=== PATIENT | male | born 1930 | race Caucasian/White ===

== ENCOUNTER 2016-07-29 10:52 | Inpatient (IN) | payer MEDICARE ==
[~2016-07-29] VITALS: Ht 175.3 cm; Wt 77.7 kg
[2016-07-29] VITALS (8 sets, daily range): BP systolic 93–147; BP diastolic 50–71; PULSE 49–75; RESP 16–20; O2SAT 96–98
[~2016-07-29 10:52] MED LIST: ALLO300T29 PO; ASAEC PO; ATEN25TA7 PO; BUPR150T6 PO; CAR2 PO; CHOL200035 PO; FLUO10TA PO; GLYB2.5T5 PO; LISI20TA PO; MAGN200T3 PO; PRAV80TA PO; RANI-323 PO; SILD50TA PO; clonidine PO
--- NOTE | 2016-07-29 11:27 | ED.REPORT ---
HPI-Altered Mental Status Date of Service Jul 29, 2016 ED Provider: History of Present Illness: 85-year-old male here today after being found down this morning at 9:30. Unknown how long he was down for. States he had multiple falls last night. He has been confused for 1-2 days. He complains of left shoulder pain that is new today he also complains of left hip pain. His family here states that he always has hip pain. He could not get up himself from the ground today that the medics to help him up so he has been nonambulatory today. Usually lives alone and gets around okay with some hip pain. Right now he denies any chest pain or shortness of breath. Denies dysuria or change in urination. Denies nausea or vomiting. He does state she has had a productive cough for the last few days. He is a daily drinker, his son's call him a Alcoholic. He is clearly confused. He denies having head pain and neck pain or back pain. 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 fib. Appears not on blood thinners due to alcoholism per previous notes. Nursing Notes Stated Complaint: ALTERED MENTAL STATUS Chief Complaint: Multiple Trauma/Fall Nursing Notes Reviewed: Yes Allergies: Coded Allergies: No Known Allergies (Verified Allergy, Unknown, 07/29/16) Scheduled Allopurinol (Allopurinol) 300 Mg Tablet 300 MG PO DAILY Amlodipine (Amlodipine) 5 Mg Tablet 2.5 MG PO DAILY Aspirin (Aspirin) 325 Mg Tablet 325 MG PO DAILY Cholecalciferol (Vitamin D3) (Vitamin D3) 2,000 Unit Tablet 2,000 UNIT PO DAILY Gabapentin (Gabapentin) 300 Mg Capsule 600 MG PO HS Lisinopril (Lisinopril) 5 Mg Tablet 5 MG PO BID Multivitamin (Once Daily) 1 Each Tablet 1 EACH PO DAILY Pravastatin (Pravastatin) 40 Mg Tablet 40 MG PO DAILY Tamsulosin (Flomax) 0.4 Mg Capsule 0.8 MG PO DAILY Thiamine Mononitrate (Vitamin B-1) 100 Mg Tablet 100 MG PO DAILY Vit B Comp/C/FA/Iron/Vit E (Vitamin B Complex Tablet) 1 Each Tablet 1 EACH PO DAILY Scheduled PRN Furosemide (Furosemide) 20 Mg Tab 20 MG PO DAILY PRN PRN leg swelling General Time Seen by MD: 11:04 Chief Complaint Confused, Disoriented, Not acting right confused, multiple falls. Found down this AM Hx Obtained From: Patient, Son, Other family..., EMS Arrived By: Ambulance Sudden in Onset?: Yes Onset Occurred: Yesterday Symptom Duration: Constant Location: : Arm left: Pelvis Severity: Current: No pain currently Severity: Maximum: Moderate Recent Healthcare: Recent doctor visit Similar Sx Previous: No Risk Factors Risk Notes: Hx RI, afib, ETOH, CKD stage 3 )( IC Bleed Risk Strat EtOH use Past Medical History Smoking History Never Smoker Review of Systems Constitutional: Reports: Weakness - generalized Eyes: Denies: Blurred bilateral, Eye pain bilateral Respiratory: Reports: Non-productive cough, Denies: Dyspnea on exertion, Wheezing Cardiovascular: Denies: Chest pain, Dyspnea on exertion GI: Denies: Abdominal pain, Diarrhea, Nausea, Vomiting Skin: Denies Rash Neurologic: Reports: Change LOC, Confusion, Problem walking, Denies: Dizziness, Headache, Lightheaded, Numbness Psychiatric: Reports: Change mental status Complete sys rev & neg: except as marked. Physical Exam Initial Vital Signs Vital Signs (First) Date Time Temp Pulse Resp B/P Pulse Ox O2 Delivery O2 Flow Rate FiO2 07/29/16 11:01 36.8 75 20 104/50 97 Room Air Initial VS: Reviewed ENT: Mucous membranes moist, Conjunctiva normal Abdomen / GI: Soft, Non-tender, No guarding, No rebound, No distention Back: No CVA tenderness Lymphatic: No lymphadenopathy Extremities: Vascular intact, Neuro intact, No swelling, No tenderness Skin: Warm, Dry, No cyanosis General/Constitutional: Awake, Alert, No acute distress Alertness: Positive: Confused, Disoriented Behavior: Negative: Aggressive Head / Eyes: Atraumatic, Normocephalic, PERRL, EOMI, No nystagmus, No periorbital redness, Conjunctiva NL Neck: Atraumatic, Supple, Full range of motion, No swelling, Non-tender, No midline vertebral tend Dec ROM and pain with head turn to R Respiratory / Chest: Atraumatic, Breath sounds = bilat, No respiratory distress Wheezing / Retractions: Positive: Wheezing expiratory (throughout) Cardiovascular: Cap refill not delayed, Peripheral circulation NL Heart Rate / Rhythm: Positive: Irreg irregular rhythm Heart Sounds / Murmur: Positive: Murmur present... (III/) Periph CV / BP Differential: Positive: Peripheral pulses 3+ Mental Status: Positive: Confused, Negative: Lethargic, Unresponsive Speech: Positive: Expressive aphasia Gait Abnormality: Positive: Unable to walk ENT: Atraumatic, Airway patent, Mucous membranes moist, Pharynx NL, No peritonsillar abscess, No pooling of secretions, No trismus, Tympanic membs NL, Ext aud canal NL, Mastoid area NL, Nose exam NL, No sinus tenderness, No facial swelling, Gums/dentition NL Abdomen: Atraumatic, Soft, Non-tender, McBurney's non-tender, No guarding, No rebound, BS normoactive, No distention, No hernia, No palpable mass, No pulsatile mass Back: Atraumatic, Inspection NL, Non-tender, No midline vertebral tend, No paraspinal tenderness, No CVA tenderness Skin: Atraumatic, Color NL, No rash, Warm, Dry, Intact, No swelling Rash / Lesion Notes: abrasian R upper arm Psychiatric: Affect NL, Mood NL Upper Extremity / MS: Atraumatic, Inspection NL, Full range of motion, No swelling Upper Ext Brief Normals: Shoulder R exam normal, Arm R exam normal, Elbow R exam normal, Elbow L exam normal, Forearm R exam normal, Forearm L exam normal, Wrist R exam normal, Wrist L exam normal, Hand R exam normal, Hand L exam normal Left Shoulder: Positive: Tenderness present... (Mild) Tender anterior L shoulder. Lower Extremity / Pelvis / MS: Atraumatic, Inspection NL, No erythema, No deformity, Neurologic intact, Pelvis stable Lower Ext Brief Normals: Hip R exam normal, Thigh R exam normal, Thigh L exam normal, Knee R exam normal, Knee L exam normal, Leg / calf R exam normal, Leg / calf L exam normal, Ankle R exam normal, Ankle L exam normal, Foot R exam normal , Foot L exam normal Left Hip: Positive: Tenderness present... (Moderate) Left Thigh: Positive: Tenderness present... (Mild) Interpretation & Diagnostics Lab Results Interpretation Result Diagram: 07/30/16 0300 07/30/16 0300 Test 07/29/16 11:10 07/29/16 13:26 07/29/16 13:30 Hemoglobin A1c 5.8% (4.8-5.6) Total Bilirubin 0.9mg/dL (0.0-1.2) Aspartate Amino Transf (AST/SGOT) 48U/L (0-50) Alanine Aminotransferase (ALT/SGPT) 15U/L (0-44) Alkaline Phosphatase 55U/L (25-160) Creatine Kinase MB 30.3ng/mL (0.0-10.4) Creatine Kinase MB % 1.6% (0.0-5.0) Total Protein 6.5g/dL (6.4-8.4) Albumin 4.0g/dL (3.4-5.0) Alcohols < 10mg/dL (0-10) Urine Color Dark yellow (YELLOW) Urine Appearance Hazy (CLEAR,HAZY) Urine pH 6.0 (5.0-8.0) Urine Specific [place] 1.010 (1.003-1.035) Urine Protein 30mg/dL (NEG,TRACE) Urine Glucose (UA) Negativemg/dL (NEGATIVE) Urine Ketones Tracemg/dL (NEGATIVE) Urine Occult Blood Large (NEGATIVE) Urine Nitrite Negative (NEGATIVE) Urine Bilirubin Negative (NEGATIVE) Urine Urobilinogen Normalmg/dL (NORMAL) Urine Leukocyte Esterase Negative (NEGATIVE) Urine RBC 0-2/hpf (0-2) Urine WBC 0-5/hpf (0-5) Urine Epithelial Cells Occasional/hpf (NONE-MOD) Urine Crystals None seen (NONE SEEN) Urine Bacteria Few/hpf (NONE-FEW) Urine Hyaline Casts 5/20/lpf (NONE) Urine Granular Casts None seen (NONE SEEN) Urine Waxy Casts None seen (NONE SEEN) Urine Red Blood Cell Casts None seen (NONE SEEN) Urine White Blood Cell Casts None seen (NONE SEEN) Urine Mucus None seen (None Seen) Urine Trichomonas None seen (NONE SEEN) Urine Yeast None (NONE SEEN) Urinalysis Comment None Lactic Acid Level 1.1mmol/L (0.4-2.0) X-Ray Chest Interpretation Chest Xray Interpretation: [place] [id number] Patient Name: GAVINO GALLEGO MR#: [id number] Location: [facility] – [place], [place] Ordering Phys: Khadra Armenta [facility] Date of Service: 07/29/16 1109 PROCEDURE: X-RAY CHEST ONE VIEW, PORTABLE ([id number]) INDICATIONS: Chest pain TECHNIQUE: One view of the chest was acquired. COMPARISON: [facility], CR, CHEST 1VW (PORTABLE), 10/01/2011, 10:42. FINDINGS: Surgical changes and devices: There postsurgical changes redemonstrated in the mediastinum. Lungs and pleura: No pleural effusions or pneumothorax. Lungs are clear. Mediastinum: Mediastinal contours appear normal. Heart size is normal. Bones and chest wall: No suspicious bony lesions. Overlying soft tissues appear unremarkable. IMPRESSION: 1. No acute cardiopulmonary disease. Dictated by: Jeison Lyn M.D. on 07/29/2016 at 11:41 Approved by: Jeison Lyn M.D. on 07/29/2016 at 11:42 CT Head Interpretation Diagnostic [place] [address] Patient Name: GAVINO GALLEGO MR#: [id number] Location: [facility] – [place], [place] Ordering Phys: Khadra Armenta [facility] Date of Service: 07/29/16 1117 PROCEDURE: CT BRAIN WITHOUT CONTRAST ([id number]) INDICATIONS: weakness TECHNIQUE: Noncontrast 4.5 mm thick angled axial sections acquired from the foramen magnum to the vertex, with coronal reformats. COMPARISON: [facility], CT, BRAIN W/O CONTRAST, 10/01/2011, 10:17. [facility], MR, BRAIN W/O CONTRAST, 12/22/2013, 10:24. [facility], CT, BRAIN W/O CONTRAST, 05/04/2013, 11:08. FINDINGS: Image quality: Excellent. CSF spaces: Basal cisterns are patent. No extra-axial fluid collections. The ventricles are prominent in size as related to gyral and sulcal atrophy. Overall appearance is stable. Brain: No intracranial bleeds or masses. There is cerebral volume loss for age, with resultant ventricular and sulcal prominence. There are periventricular and deep white matter chronic small vessel ischemic changes. There is intracranial internal carotid artery atherosclerosis. Skull and face: Calvarium and visualized facial bones appear intact. There is an unchanged appearance of sclerotic foci along the frontal calvarium, unchanged since 2011. Sinuses: Visualized sinuses demonstrate minimal maxillary sinus and ethmoid mucosal thickening. IMPRESSION: 1. No acute intracranial process. 2. Moderate atrophy and chronic microvascular ischemic changes. 3. Unchanged appearance of mild ventricular prominence in relation to gyral and sulcal atrophy. Normal pressure hydrocephalus cannot be excluded and recommend correlation to patient's symptoms. Re-Eval/Medical Decision Med Decision/Clinical Course Dr Felicita Martinez informed of pt, did eval. 1430 admit to hospital, MD accepts asked family what pt's code status was, they state they think DNR Patient Discharge & Departure Shift Change Sign-Out Laboratory Evaluation: Lab evaluation discussed Imaging Studies: Imaging discussed Procedures: Results discussed Response to Therapy: Unchanged Impression: Primary Impression: Altered mental status Altered mental status type: unspecified Qualified Code: R41.82 - Altered mental status, unspecified Additional Impressions: Weakness generalized Elevated troponin Disposition: ADMITTED TO HOSPITAL Discharge Condition All VS Reviewed: Yes Condition: Stable Referrals: Carlos Renae PA-C (PCP) EDSupervising Provider for APC: Ej Julio MD Attending Statement I discussed patient with APC Geovany. I evaluated the patient independently and agree with plan as above. In brief, 85 -year-old male history of alcohol abuse found down today. Possible recent altered mental status. Workup negative in the ED. CT Brain no acute pathology. Also with elevated troponins. Patient will be admitted for altered mental status in setting being found down, and elevated troponins. Given aspirin. copies to: Ej Julio MD; Roman Goodman Linnea K ARNP Jul 29, 2016 11:27 Ej Julio MD Jul 29, 2016 18:19 PROCEDURE: X-RAY CHEST ONE VIEW, PORTABLE ([id number]) INDICATIONS: Chest pain TECHNIQUE: One view of the chest was acquired. COMPARISON: [facility], , CHEST 1VW (PORTABLE), 10/01/2011, 10:42. FINDINGS: Surgical changes and devices: There postsurgical changes redemonstrated in the mediastinum. Lungs and pleura: No pleural effusions or pneumothorax. Lungs are clear. Mediastinum: Mediastinal contours appear normal. Heart size is normal. Bones and chest wall: No suspicious bony lesions. Overlying soft tissues appear unremarkable. IMPRESSION: 1. No acute cardiopulmonary disease. Dictated by: Jeison Lyn M.D. on 07/29/2016 at 11:41 Approved by: Jeison Lyn M.D. on 07/29/2016 at 11:42 CT Head Interpretation Diagnostic [place] [address] Patient Name: GAVINO GALLEGO MR#: [id number] Location: [facility] – [place], [place] Ordering Phys: Khadra ArmentaP Date of Service: 07/29/16 1117 PROCEDURE: CT BRAIN WITHOUT CONTRAST ([id number]) INDICATIONS: weakness TECHNIQUE: Noncontrast 4.5 mm thick angled axial sections acquired from the foramen magnum to the vertex, with coronal reformats. COMPARISON: [facility], CT, BRAIN W/O CONTRAST, 10/01/2011, 10:17. [facility], MR, BRAIN W/O CONTRAST, 12/22/2013, 10:24. [facility], CT, BRAIN W/O CONTRAST, 05/04/2013, 11:08. FINDINGS: Image quality: Excellent. CSF spaces: Basal cisterns are patent. No extra-axial fluid collections. The ventricles are prominent in size as related to gyral and sulcal atrophy. Overall appearance is stable. Brain: No intracranial bleeds or masses. There is cerebral volume loss for age, with resultant ventricular and sulcal prominence. There are periventricular and deep white matter chronic small vessel ischemic changes. There is intracranial internal carotid artery atherosclerosis. Skull and face: Calvarium and visualized facial bones appear intact. There is an unchanged appearance of sclerotic foci along the frontal calvarium, unchanged since 2011. Sinuses: Visualized sinuses demonstrate minimal maxillary sinus and ethmoid mucosal thickening. IMPRESSION: 1. No acute intracranial process. 2. Moderate atrophy and chronic microvascular ischemic changes. 3. Unchanged appearance of mild ventricular prominence in relation to gyral and sulcal atrophy. Normal pressure hydrocephalus cannot be excluded and recommend correlation to patient's symptoms. Re-Eval/Medical Decision Med Decision/Clinical Course Dr Felicita Martinez informed of pt, did eval. 1430 admit to hospital, accepts asked family what pt's code status was, they state they think DNR Patient Discharge & Departure Shift Change Sign-Out Laboratory Evaluation: Lab evaluation discussed Imaging Studies: Imaging discussed Procedures: Results discussed Response to Therapy: Unchanged Impression: Primary Impression: Altered mental status Altered mental status type: unspecified Qualified Code: R41.82 - Altered mental status, unspecified Additional Impressions: Weakness generalized Elevated troponin Disposition: ADMITTED TO HOSPITAL Discharge Condition All VS Reviewed: Yes Condition: Stable Referrals: Carlos Renae PA-C (PCP) EDSupervising Provider for APC: Ej Julio MD Attending Statement I discussed patient with KATIA Armenta. I evaluated the patient independently and agree with plan as above. In brief, 85 -year-old male history of alcohol abuse found down today. Possible recent altered mental status. Workup negative in the ED. CT Brain no acute pathology. Also with elevated troponins. Patient will be admitted for altered mental status in setting being found down, and elevated troponins. Given aspirin. copies to: Ej Julio MD; Roman Goodman Linnea K ARNP Jul 29, 2016 11:27 Ej Julio MD Jul 29, 2016 18:19 EDSupervising Provider for APC: Ej Julio MD copies to: Ej Julio MD; Roman Goodman Linnea K ARNP Jul 29, 2016 11:27
[2016-07-29 11:39] LABS: BASOPHILS % (AUTO) 0.2 % (0-3); EOSINOPHILS % (AUTO) 0.1 % (0-5)
[2016-07-29 11:42] LABS: MONOCYTES % (AUTO) 5.3 % (4-12); Mean Corpuscular Hemoglobin 33.5 pg (27.0-35.0); Mean Corpuscular Volume 101.1 fL (81-100); NEUTROPHILS % (AUTO) 88.9 % (40-74); Platelet Count 85 bil/L (150-400)
--- NOTE | 2016-07-29 11:43 | DRSVH ---
PROCEDURE: X-RAY CHEST ONE VIEW, PORTABLE ([id number]) INDICATIONS: Chest pain TECHNIQUE: One view of the chest was acquired. COMPARISON: [facility], , CHEST 1VW (PORTABLE), 10/01/2011, 10:42. FINDINGS: Surgical changes and devices: There postsurgical changes redemonstrated in the mediastinum. Lungs and pleura: No pleural effusions or pneumothorax. Lungs are clear. Mediastinum: Mediastinal contours appear normal. Heart size is normal. Bones and chest wall: No suspicious bony lesions. Overlying soft tissues appear unremarkable. IMPRESSION: 1. No acute cardiopulmonary disease. Dictated by: Jeison Lyn M.D. on 07/29/2016 at 11:41 Approved by: Jeison Lyn M.D. on 07/29/2016 at 11:42
[2016-07-29] MEDS ORDERED: 0.9% Sodium Chloride 1,000 ML IV ONE (11:55)
--- NOTE | 2016-07-29 12:07 | DRSVH ---
PROCEDURE: X-RAY LEFT SHOULDER, MINIMUM TWO VIEWS ([id number]) INDICATIONS: LEFT SHOULDER PAIN TECHNIQUE: 3 views of the shoulder were acquired. COMPARISON: None. FINDINGS: Bones: No fractures or dislocations. No suspicious bony lesions. Visualized ribs appear intact. M ild to moderate degenerative changes are present involving the acromioclavicular and the glenohumeral joints. Soft tissues: Homogeneous calcification overlying the greater tuberosity of the humeral head is incid entally noted. Vascular calcifications within the left axilla are noted. There is aortic atheroscle rosis. Postoperative changes of the chest are noted. IMPRESSION: 1. No acute fracture of the left shoulder. 2. Mild to moderate degenerative changes of the left shoulder. 2. Calcific tendinitis. Dictated by: Tyler Ross M.D. on 07/29/2016 at 11:03 Approved by: Tyler Ross M.D. on 07/29/2016 at 11:05
--- NOTE | 2016-07-29 12:10 | DRSVH ---
PROCEDURE: X-RAY PELVIS W/LAT HIP (LT) ([id number]) INDICATIONS: LEFT HIP PAIN TECHNIQUE: AP pelvis with lateral view(s) of the left hip(s). COMPARISON: [facility] [place], [place], CR, PELVIS WITH BILATERAL HIPS, 12/20/2010, 10:20. [facility], CR, XR SHOULDER MIN 2VW LT, 07/29/2016, 11:41. FINDINGS: Bones: No displaced fracture or dislocation is evident involving the left hip. No suspicious osseous lesion is appreciated. The bone mineralization is within normal limits. There are mild degenerativ e changes of the left hip. At least moderate degenerative changes of the lumbosacral spine are noted. Mild to moderate degenera tive changes of the right hip and pubis symphysis are present. No obvious pelvic fractures are evide nt. However, evaluation for pelvic fractures on this examination is significantly limited without or thogonal imaging. Soft tissues: The visualized bowel gas pattern is normal. No suspicious soft tissue calcifications. Extensive vascular calcifications overlying the pelvis and bilateral thighs are noted. IMPRESSION: Mild degenerative changes of the left hip without acute fracture. Dictated by: Tyler Ross M.D. on 07/29/2016 at 11:05 Approved by: Tyler Ross M.D. on 07/29/2016 at 11:09
--- NOTE | 2016-07-29 12:19 | DRSVH ---
PROCEDURE: CT BRAIN WITHOUT CONTRAST ([id number]) INDICATIONS: weakness TECHNIQUE: Noncontrast 4.5 mm thick angled axial sections acquired from the foramen magnum to the vertex, with c oronal reformats. COMPARISON: [facility], CT, BRAIN W/O CONTRAST, 10/01/2011, 10:17. [facility], MR, BRAIN W/O CONTRAST, 12/22/2013, 10:24. [facility], CT, BRAIN W/O CONTRAST, 05/04/19 14, 11:08. FINDINGS: Image quality: Excellent. CSF spaces: Basal cisterns are patent. No extra-axial fluid collections. The ventricles are promin ent in size as related to gyral and sulcal atrophy. Overall appearance is stable. Brain: No intracranial bleeds or masses. There is cerebral volume loss for age, with resultant vent ricular and sulcal prominence. There are periventricular and deep white matter chronic small vessel ischemic changes. There is intracranial internal carotid artery atherosclerosis. Skull and face: Calvarium and visualized facial bones appear intact. There is an unchanged appearanc e of sclerotic foci along the frontal calvarium, unchanged since 2011. Sinuses: Visualized sinuses demonstrate minimal maxillary sinus and ethmoid mucosal thickening. IMPRESSION: 1. No acute intracranial process. 2. Moderate atrophy and chronic microvascular ischemic changes. 3. Unchanged appearance of mild ventricular prominence in relation to gyral and sulcal atrophy. Marybeth l pressure hydrocephalus cannot be excluded and recommend correlation to patient's symptoms. Dictated by: Sabrina Centeno M.D. on 07/29/2016 at 12:16 Approved by: Sabrina Centeno M.D. on 07/29/2016 at 12:18
[2016-07-29 12:39] LABS: Creatine Kinase 1877 U/L (21-232)
[2016-07-29 12:48] LABS: Magnesium 1.8 mg/dL (1.6-2.6)
[2016-07-29 12:49] LABS: TROPONIN T 0.049 ug/L (0.0-0.011)
[2016-07-29 13:45] LABS: APPEARANCE,URINE HAZY (CLEAR,HAZY); COLOR,URINE DARK YELLOW (YELLOW); OCCULT BLOOD,URINE LARGE (NEGATIVE); UROBILINOGEN,URINE NORMAL (NORMAL)
[2016-07-29] MEDS ORDERED: Alum-Mag Hydrox-Simeth 30 mL Suspension PO PRN ×2 (14:35→19:15)
[2016-07-29] MEDS ORDERED: Ondansetron 2 mg/mL 2 mL Inj IVPUSH PRN (14:35)
[2016-07-29] MEDS ORDERED: MULT-666 PO (15:30)
[2016-07-29] MEDS ORDERED: ALLO300T2 PO (15:30)
[2016-07-29] MEDS ORDERED: ASPI325T32 PO (15:30)
[2016-07-29] MEDS ORDERED: VIT1TABL83 PO (15:30)
[2016-07-29] MEDS ORDERED: THIA100T64 PO (15:30)
[2016-07-29] MEDS ORDERED: LISI-571 PO (15:30)
[2016-07-29] MEDS ORDERED: GABA-502 PO (15:30)
[2016-07-29] MEDS ORDERED: TAMS0.4C98 PO (15:30)
[2016-07-29] MEDS ORDERED: AMLO5TAB2 PO (15:30)
[2016-07-29] MEDS ORDERED: PRAV40TA PO (15:30)
[2016-07-29] MEDS ORDERED: ATEN25TA PO (15:30)
[2016-07-29] MEDS ORDERED: FUR20 PO (15:30)
[2016-07-29] MEDS ORDERED: CHOL200025 PO (15:30)
--- NOTE | 2016-07-29 16:50 | NUR ---
transfer pt brought [facility]. pt denies chest pain/distress. pt states that he was sore on his left side and also reported some weakness, but both have improved significantly. tele is started on pt, ice chips are given to moisten mouth. waiting on orders.
--- NOTE | 2016-07-29 18:47 | NUR ---
ambulating in room pt asked if he could "test out his legs"- walked around the bed one time with walker and nurse-tolerated well. PT evaluation ordered for tomorrow.
[2016-07-29] MEDS ORDERED: Polyethylene Glycol (PEG) 17 Gm Powder PO PRN (19:15)
[2016-07-29] MEDS ORDERED: Thiamine Inj 100 MG, Folic Acid Inj 1 MG, Magnesium Sulfate 50% Inj 2 GM, Multivitamins... IV ONE ×5 (19:15)
[2016-07-29] MEDS ORDERED: Ondansetron 2 mg/mL 2 mL Inj IV PRN (19:15)
[2016-07-29] MEDS ORDERED: Labetalol 5 mg/mL 4 mL Inj IVPUSH PRN (19:15)
--- NOTE | 2016-07-29 19:30 | PCM.HPMED ---
Subjective Date of Service Jul 29, 2016 Primary Provider: Admitting Physician: Roman Goodman Primary Care Physician: Carlos Renae PA-C Attending Physician: Roman Goodman Chief Complaint: altered mental status History of Present Illness: 80-year-old male with past medical history of diabetes mellitus type 2, hypertension, aortic valve replacement, chronic atrial fibrillation but not on anticoagulation, presented to the emergency department after he was found down this morning at 9:30 by his son. Unknown how long he was down for with his son reporting that his last had seen his father in his normal state couple of days earlier. Patient is a poor historian and is not sure how he fell but states he had multiple falls in recent days. His son found him on the floor but awake and alert and complaining of left shoulder and left hip pain. He usually lives alone and gets around okay with some hip pain. His son thinks that patient may not have been compliant with his medications recently but is not absolutely certain. ROS currently is unremarkable with patient wondering if he can go home because he says he feels "fine". Allergies Coded Allergies: No Known Allergies (Verified Allergy, Unknown, 07/29/16) Home Medications Tamsulosin 0.4 Mg Capsule (Flomax) 0.8 Mg PO DAILY Ref 0 Cardiovascular Drugs Amlodipine 5 Mg Tablet 2.5 Mg PO DAILY Ref 0 Atenolol 25 Mg Tablet 25 Mg PO DAILY #30 TABLET Ref 0 Lisinopril 5 Mg Tablet 5 Mg PO BID #60 TABLET Ref 0 Pravastatin 40 Mg Tablet 40 Mg PO DAILY Ref 0 Central Nervous System Agents Aspirin 325 Mg Tablet 325 Mg PO DAILY #1 BOTTLE Gabapentin 300 Mg Capsule 600 Mg PO HS Ref 0 Electrolytic, Caloric, And Soraya Furosemide 20 Mg Tab 20 Mg PO DAILY PRN 30 Days Ref 0 PRN leg swelling PRN leg swelling Vitamins Cholecalciferol (Vitamin D3) 2,000 Unit Tablet (Vitamin D3) 2,000 Unit PO DAILY Multivitamin 1 Each Tablet (Once Daily) 1 Each PO DAILY Thiamine Mononitrate 100 Mg Tablet (Vitamin B-1) 100 Mg PO DAILY Vit B Comp/C/FA/Iron/Vit E 1 Each Tablet (Vitamin B Complex Tablet) 1 Each PO DAILY Allopurinol 300 Mg Tablet 300 Mg PO DAILY Ref 0 Exam Vital Signs & I/O Vital Sign- Last 8 Hours Date Time Temp Pulse Resp B/P Pulse Ox O2 Delivery O2 Flow Rate FiO2 07/29/16 16:48 58 07/29/16 16:05 36.9 57 16 147/71 97 Room Air 07/29/16 15:38 36.8 69 16 127/55 98 Room Air 07/29/16 15:01 68 16 93/63 98 Room Air 07/29/16 13:28 36.8 67 20 143/57 98 Room Air Lab & Micro Results Laboratory Tests Test 07/29/16 11:10 07/29/16 13:26 07/29/16 13:30 White Blood Count 13.0th/mm3 (3.8-10.1) Red Blood Count 3.52mil/mm3 (4.40-5.80) Hemoglobin 11.8g/dL (13.8-17.2) Hematocrit 35.6% (41.0-50.0) Mean Corpuscular Volume 101.1fL (81-100) Mean Corpuscular Hemoglobin 33.5pg (27.0-35.0) Mean Corpuscular Hemoglobin Concent 33.1% (32.0-37.0) Red Cell Distribution Width 13.8% (12.3-15.4) Platelet Count 85bil/L (150-400) Neutrophils (%) (Auto) 88.9% (40-74) Lymphocytes (%) (Auto) 5.3% (14-46) Monocytes (%) (Auto) 5.3% (4-12) Eosinophils (%) (Auto) 0.1% (0-5) Basophils (%) (Auto) 0.2% (0-3) Sodium Level 137mEq/L (134-144) Potassium Level 5.2mEq/L (3.5-5.2) Chloride Level 101mEq/L (97-108) Carbon Dioxide Level 20mmol/L (18-29) Blood Urea Nitrogen 49mg/dL (8-27) Creatinine 2.50mg/dL (0.76-1.27) Estimat Glomerular Filtration Rate 26mL/min (>59) Glucose Level 162mg/dL (60-99) Calcium Level 9.4mg/dL (8.5-10.1) Magnesium Level 1.8mg/dL (1.6-2.6) Total Bilirubin 0.9mg/dL (0.0-1.2) Aspartate Amino Transf (AST/SGOT) 48U/L (0-50) Alanine Aminotransferase (ALT/SGPT) 15U/L (0-44) Alkaline Phosphatase 55U/L (25-160) Total Creatine Kinase 1877U/L (21-232) Creatine Kinase MB 30.3ng/mL (0.0-10.4) Creatine Kinase MB % 1.6% (0.0-5.0) Troponin T 0.049ug/L (0.0-0.011) Total Protein 6.5g/dL (6.4-8.4) Albumin 4.0g/dL (3.4-5.0) Alcohols < 10mg/dL (0-10) Urine Color Dark yellow (YELLOW) Urine Appearance Hazy (CLEAR,HAZY) Urine pH 6.0 (5.0-8.0) Urine Specific [place] 1.010 (1.003-1.035) Urine Protein 30mg/dL (NEG,TRACE) Urine Glucose (UA) Negativemg/dL (NEGATIVE) Urine Ketones Tracemg/dL (NEGATIVE) Urine Occult Blood Large (NEGATIVE) Urine Nitrite Negative (NEGATIVE) Urine Bilirubin Negative (NEGATIVE) Urine Urobilinogen Normalmg/dL (NORMAL) Urine Leukocyte Esterase Negative (NEGATIVE) Urine RBC 0-2/hpf (0-2) Urine WBC 0-5/hpf (0-5) Urine Epithelial Cells Occasional/hpf (NONE-MOD) Urine Crystals None seen (NONE SEEN) Urine Bacteria Few/hpf (NONE-FEW) Urine Hyaline Casts 5/20/lpf (NONE) Urine Granular Casts None seen (NONE SEEN) Urine Waxy Casts None seen (NONE SEEN) Urine Red Blood Cell Casts None seen (NONE SEEN) Urine White Blood Cell Casts None seen (NONE SEEN) Urine Mucus None seen (None Seen) Urine Trichomonas None seen (NONE SEEN) Urine Yeast None (NONE SEEN) Urinalysis Comment None Lactic Acid Level 1.1mmol/L (0.4-2.0) Result Diagram: 07/29/16 1110 07/29/16 1110 Review of Systems: Constitutional: Negative, except as otherwise mentioned in the history above. Ophthalmologic: Negative, except as otherwise mentioned in the history above. Cardiovascular: Negative, except as otherwise mentioned in the history above. Respiratory: Negative, except as otherwise mentioned in the history above. Gastrointestinal: Negative, except as otherwise mentioned in the history above. Genitourinary: Negative, except as otherwise mentioned in the history above. Musculoskeletal: Negative, except as otherwise mentioned in the history above. Neurological: Negative, except as otherwise mentioned in the history above. Psychiatric: Negative, except as otherwise mentioned in the history above. Hematologic/Lymphatic: Negative, except as otherwise mentioned in the history above. Allergic/Immunologic: Negative, except as otherwise mentioned in the history above. PMH 1. Chronic atrial fibrillation, not on anticoagulation. 2. Diabetes mellitus type 2 on oral hypoglycemics. 3. Chronic kidney disease, stage III. 4. Hypertension. 5. Hyperlipidemia. 6. Gout. 7. Depression. 8. Possible dementia. 9. Gastroesophageal reflux disease. 10. Osteoarthritis. 11. Alcoholism. Surgical History 1. Aortic valve replacement, bioprosthetic. 2. Tonsillectomy. Family History denies any family history of heart disease or cancers Social History Hx Alcohol Use: Yes (last drink 07/26/16 or 07/27/16. He drinks whiskey daily.) Alcoholic Drinks Per Day: 1/2 pint Hx Substance Use: No Hx Tobacco Use: Yes Exam Vital Signs Vital Sign - Last Date Time Temp Pulse Resp B/P Pulse Ox O2 Delivery O2 Flow Rate FiO2 07/29/16 16:48 58 07/29/16 16:05 36.9 16 147/71 97 Room Air General: Alert, Oriented X3, Cooperative, No Acute Distress Head: Normal Eyes: PERRLA, EOMI, Scleral Anicteric Nose: Mucous Membr Moist/Supreme Mouth: Mucous Membr Moist/Supreme Neck: Supple Chest & Lungs: Chest Wall Normal, Clear to auscultation & percussion Cardiovascular: Regular Rate/Rhythm Pulses: NL carotid, radial, femoral, DP, PT Abdomen: Non-tender, Non-distended, Normoactive bowel tones, Soft Extremities: No cyanosis/clubbing/edma bilat Neurological: Grossly Neurologically Intact, Cranial Nerves 2-12 Intact, Normal Speech, Strength Normal 07/23 ext Lymphatic: Other Lymph Nodes (no lymphadenopathy) Additional Information: Psych: Normal affect Lab and Diagnostics Result Diagram: 07/29/16 1110 07/29/16 1110 X-Rays, CTs and MRIs Date of Service: 07/29/16 1109 PROCEDURE: X-RAY CHEST ONE VIEW, PORTABLE ([id number]) IMPRESSION: 1. No acute cardiopulmonary disease. Dictated by: Jeison Lyn M.D. on 07/29/2016 at 11:41 Approved by: Jeison Lyn M.D. on 07/29/2016 at 11:42 Date of Service: 07/29/167 PROCEDURE: X-RAY LEFT SHOULDER, MINIMUM TWO VIEWS ([id number]) IMPRESSION: 1. No acute fracture of the left shoulder. 2. Mild to moderate degenerative changes of the left shoulder. 2. Calcific tendinitis. Dictated by: Tyler Ross M.D. on 07/29/2016 at 11:03 Approved by: Tyler Ross M.D. on 07/29/2016 at 11:05 Date of Service: 07/29/161116 PROCEDURE: X-RAY PELVIS W/LAT HIP (LT) ([id number]) IMPRESSION: Mild degenerative changes of the left hip without acute fracture. Dictated by: Tyler Ross M.D. on 07/29/2016 at 11:05 Approved by: Tyler Ross M.D. on 07/29/2016 at 11:09 Date of Service: 07/29/161116 PROCEDURE: CT BRAIN WITHOUT CONTRAST ([id number]) IMPRESSION: 1. No acute intracranial process. 2. Moderate atrophy and chronic microvascular ischemic changes. 3. Unchanged appearance of mild ventricular prominence in relation to gyral and sulcal atrophy. Normal pressure hydrocephalus cannot be excluded and recommend correlation to patient's symptoms. Dictated by: Sabrina Centeno M.D. on 07/29/2016 at 12:16 Approved by: Sabrina Centeno M.D. on 07/29/2016 at 12:18 12-lead ECG Afib at rate of about 70 bpm. no old EKG for comparison Assessment & Plan 80-year-old male with past medical history of diabetes mellitus type 2, hypertension, aortic valve replacement, chronic atrial fibrillation but not on anticoagulation, presented to the emergency department after he was found down this morning at 9:30 by his son. Unknown how long he was down for with his son reporting that his last had seen his father in his normal state couple of days earlier. Patient is a poor historian and is not sure how he fell but states he had multiple falls in recent days. His son found him on the floor but awake and alert and complaining of left shoulder and left hip pain. # Acute fall and found down, prior to admission. - unclear etiology. - ? if syncope vs mechanical fall - r/o cardiac causes by cycling Trop - check Echo - r/o neurologic causes such as stroke (neuro exam currently non-focal) - check MRI/MRA brain - PT/OT eval # Acute rhabdomyolysis, present on admission. ongoing. due to being the floor - c/w IVF - f/u CK - f/u renal fxn # possible Non ST-segment elevation myocardial infarction vs chronically elevated Trop and amplified by underlying BHARTI/CKD - Echo and Trop check as noted above - ASA daily - check fasting lipid - Lipitor hs - hold BP meds until more stable and rule out stroke or TIA # Chronic atrial fibrillation. The patient is not anticoagulated due to alcoholism. - currently rate controlled - f/u on telemetry. - hold BP meds as noted above # Aortic valve replacement, bioprosthetic. - f/u echo # History of diabetes mellitus type 2. - no on insulin at home - ISS in the hospital - f/u HgA1C # Acute kidney injury on top of Chronic kidney disease, stage III, present on admission. - IVF as noted above - avoid nephrotoxic meds # History of Hypertension, stable. - permissive hypertension for now as noted above # Acute Confusion, loss of balance, unsteadiness. ? acute metabolic or toxic encephalopathy due to issues noted above - workup as noted above # History of Alcoholism. - Patient will be followed closely regarding alcohol withdrawal. - start "banana bag" - CIWA protocol as needed Expected length of hospital stay is greater than 2 midnights and likely 2-3 days GI Prophylaxis: Proton Pump Inhibitor VTE Prophylaxis: Sub-Q Heparin (Unfractionated) Resuscitation Status: CPR: Attempt Resuscitation (discussed and verified with patient and his son) Time spent 65 min Roman Goodman Jul 29, 2016 19:30
[2016-07-29] MEDS: Insulin Human REGular 300 Unit/3 mL Inj SUBQ SCH (20:28)
--- NOTE | 2016-07-29 23:40 | NUR ---
TRANSFER TO ROOM 2008 Pt being transferred to Room 2008 d/t bradycardia, HR sustaining in "30-40s" and "junctional rhythm" per relay technician. Orders rec'd from [facility] hospitalist to transfer. Pts son, Mohan Bojorquez notified by this RN regarding pt transfer. Telephone report given to ULICES Altamirano @ [phone]. All of pts belongings, chart and drawer medications transferred w/ pt. Addendum: 07/30/16 at 0005 by SOHAIL MORALES RN Pt transferred to Room 2008 via hospital bed @ 4805. On RA. Transported w/ IVF infusing.
[2016-07-30 00:10] VITALS: BP 108/64; PULSE 43; RESP 24; O2SAT 97
[2016-07-30] MEDS: Heparin 5,000 Unit/mL Inj SUBQ SCH ×2 (00:22→09:13)
[2016-07-30 03:13] LABS: BASOPHILS % (AUTO) 0.1 % (0-3); EOSINOPHILS % (AUTO) 3.2 % (0-5); Mean Corpuscular Hemoglobin 33.1 pg (27.0-35.0); Mean Corpuscular Volume 101.3 fL (81-100); NEUTROPHILS % (AUTO) 71.5 % (40-74); Platelet Count 72 bil/L (150-400)
[2016-07-30 03:38] LABS: INR 1.18 ratio
[2016-07-30 04:40] LABS: TROPONIN T 0.027 ug/L (0.0-0.011)
[2016-07-30 04:51] LABS: Magnesium 2.3 mg/dL (1.6-2.6)
[2016-07-30 04:54] VITALS: PULSE 42
--- NOTE | 2016-07-30 05:43 | NUR ---
Telemetry Pt afib 30s-40s while asleep this shift with rare decreases to high 20s; pt asymptomatic. While awake, HR increases to approx. 40s-60s. Pt bedrest r/t HR; neurovascular status intact. VSS. Pt denies any dizziness, lightheadednes, or nausea.
[2016-07-30] MEDS ORDERED: Multivit-Miner-Folic Acid-Iron Tablet PO SCH (08:30)
[2016-07-30] MEDS: Insulin Human REGular 300 Unit/3 mL Inj SUBQ SCH ×2 (09:01→11:58)
[2016-07-30 09:15] VITALS: BP 129/70; PULSE 52; RESP 16; O2SAT 100
--- NOTE | 2016-07-30 09:26 | NUR ---
Evaluation completed. Please go to "Notes" then click on "Assessments and Notes" (bottom left corner of screen). Then select appropriate discipline tab on top of screen.
--- NOTE | 2016-07-30 11:33 | NUR ---
Evaluation completed. Please go to "Notes" then click on "Assessments and Notes" (bottom left corner of screen). Then select appropriate discipline tab on top of screen.
--- NOTE | 2016-07-30 11:38 | PCM.DIMED ---
Discharge Instructions Date of Service Jul 30, 2016 Dates of Hospitalization Jul 29, 2016 at 15:14 Discharge Diagnosis Discharge Diagnosis # Acute fall and found down, # Acute rhabdomyolysis,improved # Bradycardia, improved # Chronic atrial fibrillation. # Aortic valve replacement, bioprosthetic. # History of diabetes mellitus type 2. # Acute kidney injury on top of Chronic kidney disease, stage III, improved # Essential Hypertension # Acute Confusion,improved # Active Alcoholism. Diet No restrictions Activity Limited until seen by PCP Patient Instructions No driving Follow-up Provider: Carlos Renae PA-C Follow-up with PCP in: 1 week Kenneth Chávez MD Jul 30, 2016 11:38
--- NOTE | 2016-07-30 12:03 | DRSVH ---
PROCEDURE: MRI BRAIN WITHOUT CONTRAST ([id number]) INDICATIONS: Altered mental status, falls TECHNIQUE: Non-contrast axial T1 spin echo, axial T2 fast spin echo, sagittal and axial FLAIR, coronal T2 fast s pin echo, axial gradient echo, axial diffusion and ADC through the brain. COMPARISON: [facility], MR, BRAIN W/O CONTRAST, 12/22/2013, 10:24. FINDINGS: Image quality: Excellent. The ventricular system and cortical sulci demonstrate atrophy, consistent for the patient's stated ag e. There are areas of increased T2/FLAIR signal intensity within the periventricular and subcortical white matter. There is no acute intra-or extra axial fluid collection. No acute hemorrhage, mass les ion or midline shift. Brainstem is unremarkable. There are no areas of restricted diffusion. Globes a re symmetrical. Sinuses demonstrate mild to moderate pansinus mucosal thickening. Osseous structures are intact. There is prominent fluid within the mastoid air cells bilaterally, left greater than righ t. IMPRESSION: 1. No acute intracranial process. 2. Moderate atrophy and chronic microvascular ischemic changes. 3. Prominent fluid within the mastoid air cells bilaterally. Recommend correlation with otomastoiditi s. 4. Mild to moderate pansinus mucosal thickening. Dictated by: Sabrina Centeno M.D. on 07/30/2016 at 11:59 Approved by: Sabrina Centeno M.D. on 07/30/2016 at 12:02
--- NOTE | 2016-07-30 12:09 | NUR ---
Social Work Note: Initial Assessment/Discharge Data& Assessment: EMR reviewed. SW met with pt and pt family at bedside to discuss discharge planning, SW role explained. Per pt is medically improved and ready for discharge. Brte Bojorquez is a 85 year old male admitted on 07/29/2016 for AMS, weakness and elevated troponin. Per H&P, pt was found down by his son. Per MD pt is medically improved and ready for discharge. Pt has [facility] Medicare coverage and sees Jhony Anders for primary care. Pt lives in [place], alone, with his adult son and daughter in law living across the street. Pt has a walker at home for ambulation assistance if needed, but does not require it most of the time. Pt independent with ADL's, but his granddaughter comes to his home 4x a week for chores and meal prep. Pt does not drive. Pt does not have HH hx, but has been to [facility]. Pt does not have LT insurance or [place] service connection. Pt has [employer] paperwork completed, SW requested a copy when possible. PT met with pt today and is recommending home health, pt and pt family are declining at this time. Pt family explained there is a medication change that they believe caused the fall and will follow up with his PCP if pt ends up needing home health in the near future. Home health list provided to reference and for preferences in the future. Pt family transporting pt home today. Pt and pt family deny any other needs. No other discharge needs identified. All updated and agreeable to plan. Plan: Per pt is medically improved and ready to discharge home via POV with family support and care giving. Pt and pt family declined HH services at this time, but will follow up with PCP if needed. Pt and pt family deny any other needs. No other discharge needs identified. All updated and agreeable to plan. REY Banerjee Addendum: 07/30/16 at 1218 by VAISHALI N SWARTZ SS Amended: Links added.
--- NOTE | 2016-07-30 12:56 | NUR ---
Discharge The pt left the unit at 1255 with all his belongings and his packet of discharge paperwork. He left via wheelchair with a MANAGER STATE to a private vehicle where his family will transport him home. The pt and his family verbalized understanding of ll discharge teaching - including info presented on medications and follow up appointments. The pt left A&O with vitals stable WNL.
--- NOTE | 2016-07-31 12:58 | PCM.DC.MED ---
Discharge Summary Date of Service Jul 30, 2016 Dates of Hospitalization Date of Hospital Admission Jul 29, 2016 at 15:14 Date of Discharge: Jul 30, 2016 Providers: Admitting Physician: Roman Goodman Primary Care Physician: Carlos Renae PA-C Attending Physician: Roman Goodman Diagnosis at Time of Discharge Diagnosis at Time of Discharge # Acute fall and found down, # Acute rhabdomyolysis,improved # Bradycardia, improved # Chronic atrial fibrillation. # Aortic valve replacement, bioprosthetic. # History of diabetes mellitus type 2. # Acute kidney injury on top of Chronic kidney disease, stage III, improved # Essential Hypertension # Acute Confusion,improved # Active Alcoholism. Consultations None Procedures XRay, CTs & MRIs Date of Service: 07/29/16 1109 PROCEDURE: X-RAY CHEST ONE VIEW, PORTABLE ([id number]) IMPRESSION: 1. No acute cardiopulmonary disease. Dictated by: Jeison Lyn M.D. on 07/29/2016 at 11:41 Approved by: Jeison Lyn M.D. on 07/29/2016 at 11:42 Date of Service: 07/29/16 1117 PROCEDURE: X-RAY LEFT SHOULDER, MINIMUM TWO VIEWS ([id number]) IMPRESSION: 1. No acute fracture of the left shoulder. 2. Mild to moderate degenerative changes of the left shoulder. 2. Calcific tendinitis. Dictated by: Tyler Ross M.D. on 07/29/2016 at 11:03 Approved by: Tyler Ross M.D. on 07/29/2016 at 11:05 Date of Service: 07/29/16 1117 PROCEDURE: X-RAY PELVIS W/LAT HIP (LT) ([id number]) IMPRESSION: Mild degenerative changes of the left hip without acute fracture. Dictated by: Tyler Ross M.D. on 07/29/2016 at 11:05 Approved by: Tyler Ross M.D. on 07/29/2016 at 11:09 Date of Service: 07/29/16 1117 PROCEDURE: CT BRAIN WITHOUT CONTRAST ([id number]) IMPRESSION: 1. No acute intracranial process. 2. Moderate atrophy and chronic microvascular ischemic changes. 3. Unchanged appearance of mild ventricular prominence in relation to gyral and sulcal atrophy. Normal pressure hydrocephalus cannot be excluded and recommend correlation to patient's symptoms. Dictated by: Sabrina Centeno M.D. on 07/29/2016 at 12:16 Approved by: Sabrina Centeno M.D. on 07/29/2016 at 12:18 ECG 12 Lead Afib at rate of about 70 bpm. no old EKG for comparison Cardiac Echo Impression None Invasive Procedures None Brief History 80-year-old male with past medical history of diabetes mellitus type 2, hypertension, aortic valve replacement, chronic atrial fibrillation but not on anticoagulation, presented to the emergency department after he was found down this morning at 9:30 by his son. Unknown how long he was down for with his son reporting that his last had seen his father in his normal state couple of days earlier. Patient is a poor historian and is not sure how he fell but states he had multiple falls in recent days. His son found him on the floor but awake and alert and complaining of left shoulder and left hip pain. He usually lives alone and gets around okay with some hip pain. His son thinks that patient may not have been compliant with his medications recently but is not absolutely certain. ROS currently is unremarkable with patient wondering if he can go home because he says he feels "fine". Hospital Course 80-year-old male with past medical history of diabetes mellitus type 2, hypertension, aortic valve replacement, chronic atrial fibrillation but not on anticoagulation, presented to the emergency department after he was found down this morning at 9:30 by his son. Unknown how long he was down for with his son reporting that his last had seen his father in his normal state couple of days earlier. Patient is a poor historian and is not sure how he fell but states he had multiple falls in recent days. His son found him on the floor but awake and alert and complaining of left shoulder and left hip pain. # Acute fall and found down, prior to admission. - unclear etiology. - ? if syncope vs mechanical fall - r/o cardiac causes by cycling Trop - check Echo - r/o neurologic causes such as stroke (neuro exam currently non-focal) - check MRI/MRA brain - PT/OT eval The patient attained his normal baseline and did well physical therapy was felt to be stable for discharge home on the day of discharge. # Acute rhabdomyolysis, present on admission. ongoing. due to being the floor - c/w IVF - f/u CK - f/u renal fxn This issue normalized. # possible Non ST-segment elevation myocardial infarction vs chronically elevated Trop and amplified by underlying BHARTI/CKD - Echo and Trop check as noted above - ASA daily - check fasting lipid - Lipitor hs - hold BP meds until more stable and rule out stroke or TIA The patient had no evidence of acute coronary syndrome. # Chronic atrial fibrillation. The patient is not anticoagulated due to alcoholism. - currently rate controlled - f/u on telemetry. - hold BP meds as noted above This remained stable. The patient is an ACTIVE alcoholic and not felt to be a good candidate for anticoagulation. # Aortic valve replacement, bioprosthetic. - f/u echo The valve is unremarkable and functioning without difficulty. # History of diabetes mellitus type 2. - no on insulin at home - ISS in the hospital - f/u HgA1C This was stable during the hospitalization # Acute kidney injury on top of Chronic kidney disease, stage III, present on admission. - IVF as noted above - avoid nephrotoxic meds This improved during hospitalization with rehydration. # History of Hypertension, stable. - permissive hypertension for now as noted above # Acute Confusion, loss of balance, unsteadiness. ? acute metabolic or toxic encephalopathy due to issues noted above - workup as noted above This improved as well. # History of Alcoholism. - Patient will be followed closely regarding alcohol withdrawal. - start "banana bag" - CIWA protocol as needed The patient was advised against drinking and also advised against driving and drinking which is an ongoing habitus. He is also advised against driving in any capacity. The importance of reassessing his relationship of alcohol was emphasized to the patient in front of his entire family. His family conference. Virgin to be stable for discharge on the day of discharge. Exam Vital Signs (Last) Date Time Temp Pulse Resp B/P Pulse Ox O2 Delivery O2 Flow Rate FiO2 07/30/16 09:15 36.3 52 16 129/70 100 Room Air Exam Patient was seen and examined on the day of discharge Test 07/29/16 11:10 07/29/16 13:26 07/29/16 13:30 07/30/16 03:00 Hemoglobin A1c 5.8% (4.8-5.6) Total Bilirubin 0.9mg/dL (0.0-1.2) Aspartate Amino Transf (AST/SGOT) 48U/L (0-50) Alanine Aminotransferase (ALT/SGPT) 15U/L (0-44) Alkaline Phosphatase 55U/L (25-160) Creatine Kinase MB 30.3ng/mL (0.0-10.4) Creatine Kinase MB % 1.6% (0.0-5.0) Total Protein 6.5g/dL (6.4-8.4) Albumin 4.0g/dL (3.4-5.0) Alcohols < 10mg/dL (0-10) Urine Color Dark yellow (YELLOW) Urine Appearance Hazy (CLEAR,HAZY) Urine pH 6.0 (5.0-8.0) Urine Specific Roark 1.010 (1.003-1.035) Urine Protein 30mg/dL (NEG,TRACE) Urine Glucose (UA) Negativemg/dL (NEGATIVE) Urine Ketones Tracemg/dL (NEGATIVE) Urine Occult Blood Large (NEGATIVE) Urine Nitrite Negative (NEGATIVE) Urine Bilirubin Negative (NEGATIVE) Urine Urobilinogen Normalmg/dL (NORMAL) Urine Leukocyte Esterase Negative (NEGATIVE) Urine RBC 0-2/hpf (0-2) Urine WBC 0-5/hpf (0-5) Urine Epithelial Cells Occasional/hpf (NONE-MOD) Urine Crystals None seen (NONE SEEN) Urine Bacteria Few/hpf (NONE-FEW) Urine Hyaline Casts 5/20/lpf (NONE) Urine Granular Casts None seen (NONE SEEN) Urine Waxy Casts None seen (NONE SEEN) Urine Red Blood Cell Casts None seen (NONE SEEN) Urine White Blood Cell Casts None seen (NONE SEEN) Urine Mucus None seen (None Seen) Urine Trichomonas None seen (NONE SEEN) Urine Yeast None (NONE SEEN) Urinalysis Comment None Lactic Acid Level 1.1mmol/L (0.4-2.0) White Blood Count 7.5th/mm3 (3.8-10.1) Red Blood Count 3.02mil/mm3 (4.40-5.80) Hemoglobin 10.0g/dL (13.8-17.2) Hematocrit 30.6% (41.0-50.0) Mean Corpuscular Volume 101.3fL (81-100) Mean Corpuscular Hemoglobin 33.1pg (27.0-35.0) Mean Corpuscular Hemoglobin Concent 32.7% (32.0-37.0) Red Cell Distribution Width 14.0% (12.3-15.4) Platelet Count 72bil/L (150-400) Neutrophils (%) (Auto) 71.5% (40-74) Lymphocytes (%) (Auto) 18.9% (14-46) Monocytes (%) (Auto) 6.0% (4-12) Eosinophils (%) (Auto) 3.2% (0-5) Basophils (%) (Auto) 0.1% (0-3) Prothrombin Time 12.7sec (8.1-12.5) Prothromb Time International Ratio 1.18ratio Activated Partial Thromboplast Time 47.0sec (22.8-33.0) Sodium Level 138mEq/L (134-144) Potassium Level 4.1mEq/L (3.5-5.2) Chloride Level 106mEq/L (97-108) Carbon Dioxide Level 19mmol/L (18-29) Blood Urea Nitrogen 48mg/dL (8-27) Creatinine 2.09mg/dL (0.76-1.27) Estimat Glomerular Filtration Rate 32mL/min (>59) Glucose Level 98mg/dL (60-99) Calcium Level 8.4mg/dL (8.5-10.1) Magnesium Level 2.3mg/dL (1.6-2.6) Total Creatine Kinase 6744U/L (21-232) Troponin T 0.027ug/L (0.0-0.011) Triglycerides Level 97mg/dL (0-149) Cholesterol Level 122mg/dL (100-199) LDL Cholesterol, Calculated 32.600mg/dL (0-99) VLDL Cholesterol 19.400mg/dL HDL Cholesterol 70mg/dL (>39) Cholesterol/HDL Ratio 1.74 (0.0-4.4) Procalcitonin 12.12ng/mL (0.00-0.08) Thyroid Stimulating Hormone (TSH) 1.420uIU/mL (0.450-4.500) Discharge Medications Discharge Medications Allopurinol (Allopurinol) 300 Mg Tablet 300 MG PO DAILY (Reported) Amlodipine (Amlodipine) 5 Mg Tablet 2.5 MG PO DAILY (Reported) Aspirin (Aspirin) 325 Mg Tablet 325 MG PO DAILY (Reported) Cholecalciferol (Vitamin D3) (Vitamin D3) 2,000 Unit Tablet 2,000 UNIT PO DAILY (Reported) Gabapentin (Gabapentin) 300 Mg Capsule 600 MG PO HS (Reported) Lisinopril (Lisinopril) 5 Mg Tablet 5 MG PO BID (Reported) Multivitamin (Once Daily) 1 Each Tablet 1 EACH PO DAILY (Reported) Pravastatin (Pravastatin) 40 Mg Tablet 40 MG PO DAILY (Reported) Tamsulosin (Flomax) 0.4 Mg Capsule 0.8 MG PO DAILY (Reported) Thiamine Mononitrate (Vitamin B-1) 100 Mg Tablet 100 MG PO DAILY (Reported) Vit B Comp/C/FA/Iron/Vit E (Vitamin B Complex Tablet) 1 Each Tablet 1 EACH PO DAILY (Reported) As needed Furosemide (Furosemide) 20 Mg Tab 20 MG PO DAILY PRN PRN leg swelling (Reported ) Followup Plan Disposition: Home Discharge Diet: No restrictions Discharge Activity: Limited until seen by PCP Patient Instructions No driving Follow-up Provider: Carlos Renae PA-C Follow-up with PCP in: 1 week Time spent 45 minutes Kenneth Chávez MD Jul 31, 2016 12:58
== END 2016-07-30 13:05 | disposition home or self-care (01) | DRG 565 ==
LOC: EDUNIT# 10:52 → SED 10:52 → EDBD 10:52 → MPC 15:14 → PCC 23:28
PROVIDERS: ADMIT Internal Medicine; ATTEND Internal Medicine
DX: T79.6XXA Traumatic ischemia of muscle, initial encounter (principal); N17.9 Acute kidney failure, unspecified; R29.6 Repeated falls; Z79.82 Long term (current) use of aspirin; Z95.2 Presence of prosthetic heart valve; N18.3 Chronic kidney disease, stage 3 (moderate); W19.XXXA Unspecified fall, initial encounter; I48.2 Chronic atrial fibrillation; E11.9 Type 2 diabetes mellitus without complications; R41.0 Disorientation, unspecified; R00.1 Bradycardia, unspecified; F10.20 Alcohol dependence, uncomplicated; Y90.0 Blood alcohol level of less than 20 mg/100 ml